=== PATIENT | female | born 1980 | race Caucasian/White ===

== ENCOUNTER 2017-09-06 05:40 | Emergency (ER) | payer OTHER ==
--- NOTE | 2017-09-06 05:58 | EDM.PDOC ---
ED HPI GENERAL MEDICAL PROBLEM - General Chief Complaint: Chest Pain Stated Complaint: CHEST PAIN Time Seen by Provider: 09/06/17 05:57 Source of Information: Reports: Patient History Limitations: Reports: No Limitations - History of Present Illness INITIAL COMMENTS - FREE TEXT/NARRATIVE: 37-year-old female presents to the ED due to development of initial poor mid back pain on the left side that started about 3 hours ago while she was at work . Her job is mostly sedentary and therefore she doesn't believe she hurt her back. About an hour ago she developed central retrosternal pressure discomfort that was very severe and made it difficult to breathe. Pain was present up until about the mid sternum. She denies cough sputum production no fever or chills. Has not been recently ill. Has no history of asthma. Does not have a history of gastroesophageal reflux disease. She did have lunch during the night with no trouble swallowing. Burping and belching did not relieve the discomfort. Current pain is still a pressure of 5 or 6 out of 10 central chest. ECG done by triage nurse shows sinus rhythm at 87/m with no signs of ischemia it is a normal ECG. He is a never smoker. No recent travel history. Is not on control. Onset: Today, Sudden Onset Date: 09/06/17 Onset Time: 04:45 (Development of retrosternal pressure discomfort.) Duration: Minutes:, Constant (Central retrosternal chest.) Location: Reports: Chest (Central lower retrosternal chest.) Quality: Reports: Ache, Pressure (Like a heaviness in her mid chest.) Severity: Moderate Improves with: Reports: None (Rates it as a 5 out of 10.) Worsens with: Reports: Other (Trying to take a deep breath.) Context: Denies: Activity, Exercise, Lifting, Sick Contact, Trauma Associated Symptoms: Reports: Chest Pain, Shortness of Breath. Denies: No Other Symptoms (See history present illness), Confusion, Cough, cough w sputum, Diaphoresis, Fever/Chills, Headaches, Loss of Appetite, Malaise, Nausea/Vomiting , Rash, Seizure, Syncope, Weakness Treatments [employer]: Reports: Other (see below) (Can take a full deep breath as it aggravates the lower retrosternal chest discomfort..) Chest Pain Score (Numeric/FACES): 2 - Related Data Allergies Allergy/AdvReac Type Severity Reaction Status Date / Time No Known Allergies Allergy Verified 09/06/17 06:11 Home Meds: Home Meds Hyoscyamine Sulfate [Levsin-Sl] 0.125 mg SL ASDIRECTED PRN #6 tab.subl 09/06/17 [Rx] oxyCODONE HCl/Acetaminophen [Percocet 5-325 mg Tablet] 1 - 2 each PO Q4H PRN # 12 tablet 09/06/17 [Rx] Social & Family History - Tobacco Use Smoking Status *Q: Never Smoker - Living Situation & Occupation Living situation: Reports: Occupation: Employed ED ROS GENERAL - Review of Systems Review Of Systems: See Below Constitutional: Denies: Fever, Chills, Malaise, Weakness, Fatigue, Decreased Appetite, Weight Loss HEENT: Reports: No Symptoms Respiratory: Reports: Shortness of Breath. Denies: Wheezing, Pleuritic Chest Pain (A feeling of in ability to take a full deep breath.), Cough, Sputum, Hemoptysis Cardiovascular: Reports: Chest Pain. Denies: No Symptoms, Blood Pressure Problem, Claudication, Dyspnea on Exertion, Edema, Lightheadedness, Orthopnea, Palpitations Endocrine: Reports: No Symptoms GI/Abdominal: Reports: Abdominal Pain (Some epigastric pressure discomfort). Denies: Constipation, Diarrhea, Decreased Appetite, Difficulty Swallowing, Flatus, Hematemesis, Hematochezia, Melena, Nausea, Vomiting : Reports: No Symptoms Musculoskeletal: Reports: Back Pain (Has some left lower back pain 3 hours prior to developing the central chest discomfort. It has eased up somewhat.) Skin: Reports: No Symptoms Neurological: Reports: No Symptoms Psychiatric: Reports: No Symptoms Hematologic/Lymphatic: Reports: No Symptoms Immunologic: Reports: No Symptoms ED EXAM, GENERAL - Physical Exam Exam: See Below Exam Limited By: No Limitations General Appearance: Alert, WD/WN, Anxious, Mild Distress (Mildly anxious.) Eye Exam: Bilateral Eye: Normal Inspection Ears: Normal TMs Throat/Mouth: Normal Inspection, Normal Lips, Normal Teeth, Normal Oropharynx Head: Atraumatic, Normocephalic Neck: Normal Inspection, Supple, Non-Tender, Full Range of Motion. No: Carotid Bruit, Lymphadenopathy (L), Lymphadenopathy (R) Respiratory/Chest: No Respiratory Distress, Lungs Clear, Normal Breath Sounds, No Accessory Muscle Use, Chest Non-Tender, Other (No chest wall pain elicited on examination.). No: Rhonchi, Wheezing, Splinting Cardiovascular: Normal Peripheral Pulses, Regular Rate, Rhythm, No Edema, No Gallop, No Murmur, No Rub Peripheral Pulses: 3+: Carotid (L), Carotid (R), Posterior Tibial (L), Posterior Tibial (R), Dorsalis Pedis (L), Dorsalis Pedis (R) GI/Abdominal: Normal Bowel Sounds, Soft, No Organomegaly, No Distention, No Abnormal Bruit, No Mass, Pelvis Stable, Tender (Mildly tender only in the pit of the stomach. And when I pushed upwards it tends to make the pain in her retrosternal chest worse.), Other (No right upper quadrant tenderness. Negative Pack sign) Back Exam: Normal Inspection, Full Range of Motion. No: CVA Tenderness (L), CVA Tenderness (R) Extremities: Normal Inspection, Normal Range of Motion, Non-Tender, No Pedal Edema Neurological: Alert, Oriented, CN II-XII Intact, Normal Cognition Psychiatric: Normal Affect, Normal Mood Skin Exam: Warm, Dry, Intact, Normal Color, No Rash EKG INTERPRETATION EKG Date: 09/06/17 Time: 05:50 Rhythm: NSR Rate (Beats/Min): 87 [place]: Normal P-Wave: Present QRS: Normal EKG Interpretation Comments: Normal ECG Course - Vital Signs Last Recorded V/S: Last Vital Signs Temp 36.3 C 09/06/17 05:49 Pulse 83 09/06/17 05:49 Resp 19 09/06/17 05:49 BP 140/87 09/06/17 05:49 Pulse Ox 100 09/06/17 05:49 - Orders/Labs/Meds Orders: Active Orders 24 hr Category Date Time Status Chest 2V [CR] Stat Exams 09/06/17 06:09 Taken Labs: Laboratory Tests 09/06/17 09/06/17 09/06/17 Range/Units 06:25 06:25 06:25 WBC 14.05 H (3.98-10.04) K/mm3 RBC 4.42 (3.98-5.22) M/mm3 Hgb 13.3 (11.2-15.7) gm/L Hct 40.5 (34.1-44.9) % MCV 91.6 (79.4-94.8) fl MCH 30.1 (25.6-32.2) pg MCHC 32.8 (32.2-35.5) g/dl RDW Std Deviation 40.4 (36.4-46.3) fL Plt Count 352 (182-369) K/mm3 MPV 9.2 L (9.4-12.3) fl Neutrophils % (Manual) 61 H (40-60) % Band Neutrophils % 0 (0-10) % Lymphocytes % (Manual) 33 (20-40) % Atypical Lymphs % 0 % Monocytes % (Manual) 6 (2-10) % Eosinophils % (Manual) 0 L (0.7-5.8) % Basophils % (Manual) 0 L (0.1-1.2) Platelet Estimate Adequate RBC Morph Comment Normal D-Dimer, Quantitative < 0.19 L (0.19-0.59) mg/L Sodium 141 (136-145) mEq/L Potassium 3.9 (3.5-5.1) mEq/L Chloride 104 (98-107) mEq/L Carbon Dioxide 24 (21-32) mEq/L Anion Gap 16.9 H (5-15) BUN 11 (7-18) mg/dL Creatinine 0.8 (0.55-1.02) mg/dL Est Cr Clr Drug Dosing 89.26 mL/min Estimated GFR (MDRD) > 60 (>60) mL/min BUN/Creatinine Ratio 13.8 L (14-18) Glucose 94 (74-106) mg/dL Calcium 9.1 (8.5-10.1) mg/dL Total Bilirubin 0.2 (0.2-1.0) mg/dL AST 16 (15-37) U/L ALT 11 L (14-59) U/L Alkaline Phosphatase 64 (46-116) U/L Troponin I (0.00-0.056) ng/mL Total Protein 7.4 (6.4-8.2) g/dl Albumin 3.8 (3.4-5.0) g/dl Globulin 3.6 gm/dL Albumin/Globulin Ratio 1.1 (1-2) 09/06/17 Range/Units 06:25 WBC (3.98-10.04) K/mm3 RBC (3.98-5.22) M/mm3 Hgb (11.2-15.7) gm/L Hct (34.1-44.9) % MCV (79.4-94.8) fl MCH (25.6-32.2) pg MCHC (32.2-35.5) g/dl RDW Std Deviation (36.4-46.3) fL Plt Count (182-369) K/mm3 MPV (9.4-12.3) fl Neutrophils % (Manual) (40-60) % Band Neutrophils % (0-10) % Lymphocytes % (Manual) (20-40) % Atypical Lymphs % % Monocytes % (Manual) (2-10) % Eosinophils % (Manual) (0.7-5.8) % Basophils % (Manual) (0.1-1.2) Platelet Estimate RBC Morph Comment D-Dimer, Quantitative (0.19-0.59) mg/L Sodium (136-145) mEq/L Potassium (3.5-5.1) mEq/L Chloride (98-107) mEq/L Carbon Dioxide (21-32) mEq/L Anion Gap (5-15) BUN (7-18) mg/dL Creatinine (0.55-1.02) mg/dL Est Cr Clr Drug Dosing mL/min Estimated GFR (MDRD) (>60) mL/min BUN/Creatinine Ratio (14-18) Glucose (74-106) mg/dL Calcium (8.5-10.1) mg/dL Total Bilirubin (0.2-1.0) mg/dL AST (15-37) U/L ALT (14-59) U/L Alkaline Phosphatase (46-116) U/L Troponin I < 0.017 (0.00-0.056) ng/mL Total Protein (6.4-8.2) g/dl Albumin (3.4-5.0) g/dl Globulin gm/dL Albumin/Globulin Ratio (1-2) Meds: Medications Discontinued Medications Generic Name Dose Route Start Last Admin Trade Name Freq PRN Reason Stop Dose Admin Dicyclomine HCl 20 mg 09/06/17 06:10 09/06/17 06:19 Bentyl PO 09/06/17 06:11 20 mg ONETIME ONE Administration Hyoscyamine 0.125 mg 09/06/17 06:10 09/06/17 06:19 Hyomax-Sl SL 09/06/17 06:11 0.125 mg ONETIME ONE Administration Ondansetron HCl 4 mg 09/06/17 07:08 09/06/17 07:16 Zofran Odt PO 09/06/17 07:09 4 mg ONETIME ONE Administration Oxycodone/Acetaminophen 2 tab 09/06/17 07:08 09/06/17 07:15 Percocet 325-5 Mg PO 09/06/17 07:09 2 tab ONETIME ONE Administration - Radiology Interpretation Free Text/Narrative:: 37-year-old female presents to the ED with lower retrosternal pressure discomfort for about an hour. She was at work when this came on. She did develop some left lower mid back pain about 3 hours prior to the chest pain. Chest pain caused her to feel like she could not get a deep breath. It made the pain worse. She still has some central chest discomfort rating it as a 5 out of 10. No true odynophagia ate a lunch during the night at work. No nausea or vomiting. Pain is primarily in the epigastrium and radiates upwards into the retrosternal chest. Burping and belching did not relieve the discomfort. She has not had similar type pain. She has not drank any soda pop or carbonated beverages. O2 sats are 100%. Vital signs are otherwise normal. ECG is also sinus rhythm at 87/m and is normal without any signs of ischemia. My suspicion is this is gastroesophageal in origin i.e. highly suspect hiatal hernia. Plan Levsin 0.125 mg sublingual Bentyl 20 mg by mouth to relieve the hiatal hernia spasm. Two-view chest x-ray to be done. Routine labs including a d-dimer to be done. - Re-Assessments/Exams Free Text/Narrative Re-Assessment/Exam: 09/06/17 06:46 two-view chest x-ray is within normal limits showing clear lung mello. Question of extra air rectal cardiac suggesting possible hiatal hernia. 09/06/17 06:59 Labs are back.Labs reviewed reveal an elevated white count at 14.05 which appears to be stress response. 0.3 with hematocrit of 40.5. Platelet count normal 3 52,000. Dimer is less than 0.19. Differential on the white count is 61% neutrophils and no bands. Chemistry is normal other than a slightly elevated anion gap at 16.9. BUNs 11 with a creatinine of 0.8. Glucose is 94. Liver function is normal troponin I is less than 0.017. 09/06/17 07:09 She is still experiencing fairly significant retrosternal pressure discomfort. I will therefore give HER-2 Percocet 5/3/25 milligram tablets and Zofran 4 mg sublingually to relieve spasm of suspect hiatal hernia. He is going home to bed at this time and her is here to drive. Departure - Departure Time of Disposition: 06:59 Disposition: Home, Self-Care 01 Condition: Fair Clinical Impression: Non-cardiac chest pain, Hiatal hernia Prescriptions: Hyoscyamine Sulfate [Levsin-Sl] 0.125 mg SL ASDIRECTED PRN #6 tab.subl PRN Reason: hiatal hernia. oxyCODONE HCl/Acetaminophen [Percocet 5-325 mg Tablet] 1 - 2 each PO Q4H PRN # 12 tablet PRN Reason: pain relief. Instructions: Hiatal Hernia, Nonspecific Chest Pain, [id number] Referrals: PCP,None [Primary Care Provider] - Forms: ED Department Discharge Additional Instructions: Evaluation in the emergency room this morning and repeat regards to development of left-sided mid back pain which appears to be musculoskeletal in origin or I suspect rib head subluxation at thoracic 9 and 10 levels. May have to seek chiropractic manipulation if this continues to bother you. In regards to the development of the lower anterior chest discomfort on deep pressure and heaviness with trouble breathing this appears to be secondary to hiatal hernia which means part of your stomach slid up into the lower chest behind the heart causing stretching of the opening where the food pipe travels to the diaphragm which would make itch difficult to take a deep breath and cause central chest pressure discomfort. ECG heart tracing is normal chest x-ray is normal and labs turned out to be completely normal including no evidence of any blood clot in the lung. You're given Levsin 0.125 milligram tablet under the tongue to try and relieve hiatal hernia spasm as well as Bentyl 20 mg by mouth. Hiatal hernia may occur at any time but often after gas-forming foods such as onions cauliflower, broccoli, radishes. Also carbonated beverages may help precipitate hiatal hernia discomfort and of course lying down after eating may help precipitate hiatal hernia as well. I have written you a prescription for Levsin tablets that she can take on your tongue if he develops similar type discomfort. Take one immediately at the time you develop similar type discomfort and if not improved in 10 minutes take a second one of the tongue. Taking more than 2 tablets is unlikely to help . If the Levsin does not work then you may try Percocet tablet --usually one every 4hrs if needed. If similar symptoms persist then follow-up with personal doctor to arrange an upper GI endoscopy would be in order. - My Orders Last 24 Hours: My Active Orders 09/06/17 06:09 Chest 2V [CR] Stat - Assessment/Plan Last 24 Hours: My Active Orders 09/06/17 06:09 Chest 2V [CR] Stat
[2017-09-06] MEDS ORDERED: Hyoscyamine 0.125 MG Tab.SL SL ONE (06:10)
[2017-09-06] MEDS ORDERED: Dicyclomine 10 MG Cap PO ONE (06:10)
[2017-09-06] MEDS ORDERED: Acetaminophen/oxyCODONE 325-5 MG Tab PO ONE (07:08)
[2017-09-06] MEDS ORDERED: Ondansetron 4 MG Tab.DIS PO ONE (07:08)
--- NOTE | 2017-09-06 08:33 | CR ---
Chest: Two views of the chest were obtained. Comparison: No prior study. Heart size and mediastinum are normal. Lungs are clear. Minimal scoliosis is present within the spine. No acute bony abnormality is identified. Impression: 1. Nothing acute is appreciated on two-view chest x-ray. Diagnostic code #2
== END 2017-09-06 07:25 | disposition home or self-care (01) ==
LOC: JD.ED 05:40
DX: R07.89 Other chest pain (principal); K44.9 Diaphragmatic hernia without obstruction or gangrene
CPT/HCPCS: 36415; 71046; 80053; 84484; 85025; 85379; 93005; 99285; A9270; 93010; 99284-25